=== PATIENT | female | born 2000 | race Caucasian/White ===

== ENCOUNTER 2018-08-03 13:43 | Emergency (ER) | payer SELFPAY ==
[2018-08-03 14:05] VITALS: BP 121/53
--- NOTE | 2018-08-03 14:20 | UC ---
Headache HPI - HPI Summary HPI Summary: headaches x 2 days pain is sever 8 out of 10 no radiation of the pain , took Excedrin and her salmon improved for 5 hrs but then came back no n/v , + nasal congestion ,no cough, no fever - History Of Current Complaint Chief Complaint: UCRespiratory Stated Complaint: SINUSES/MIGRAINE Time Seen by Provider: 08/03/18 14:07 Hx Obtained From: Patient Hx Last Menstrual Period: 07/21/18 ?: No Onset/Duration: Gradual Onset, Lasting Days - 2, Resolved Initially Headache Was: Severe Currently Pain Is: Mild Pain Intensity: 5 Timing: Intermittent, Lasting: - 5hr Character: Throbbing Location of Headache: Frontal Aggravating Factor(s): Nothing Allevating Factor(s): Medication Associated Signs And Symptoms: Negative: Dizziness, Seizure, Nausea, Vomiting, Sinus Pressure, Fever, Neck Pain, Decreased LOC, Visual Changes - Allergies/Home Medications Allergies/Adverse Reactions: Allergies Allergy/AdvReac Type Severity Reaction Status Date / Time No Known Allergies Allergy Verified 08/03/18 14:00 Home Medications: Home Medications Bcp 1 tab DAILY 08/03/18 [History Confirmed 08/03/18] PMH/Surg Hx/FS Hx/Imm Hx Previously Healthy: Yes - Surgical History Surgical History: None - Family History Known Family History: Negative: Diabetes - Social History Alcohol Use: None Substance Use Type: None Smoking Status (MU): Never Smoked Tobacco Review of Systems Constitutional: Negative Skin: Negative Eyes: Negative ENT: Negative Respiratory: Negative Cardiovascular: Negative Neurological: Headache Is Patient Immunocompromised?: No All Other Systems Reviewed And Are Negative: Yes Physical Exam Triage Information Reviewed: Yes Appearance: Well-Appearing, No Pain Distress, Well-Nourished Vital Signs: Initial Vital Signs Temp 98.8 F 08/03/18 14:01 Pulse 88 08/03/18 14:01 Resp 16 08/03/18 14:01 BP 121/53 08/03/18 14:01 Pulse Ox 100 08/03/18 14:01 Vital Signs Reviewed: Yes Eye Exam: Normal Eyes: Positive: Conjunctiva Clear ENT: Positive: Normal ENT inspection, Hearing grossly normal, Pharynx normal, TMs normal. Negative: Nasal congestion, Nasal drainage, TM bulging, TM dull, TM red, Tonsillar swelling, Tonsillar exudate Neck exam: Normal Neck: Positive: Supple, Nontender, No Lymphadenopathy Respiratory Exam: Normal Respiratory: Positive: Chest non-tender, Lungs clear, Normal breath sounds Cardiovascular: Positive: RRR, No Murmur, Pulses Normal Neurological Exam: Normal Skin Exam: Normal Headache Course/Dx - Differential Dx/Diagnosis Provider Diagnoses: acute headache Discharge - Sign-Out/Discharge Documenting (check all that apply): Patient Departure All imaging exams completed and their final reports reviewed: No Studies - Discharge Plan Condition: Stable Disposition: HOME Prescriptions: SUMAtriptan TAB* [Imitrex TAB*] 100 mg PO SEE INSTRUCTIONS #10 tab Patient Education Materials: Acute Headache (DC) Referrals: No Primary Care Phys,NOPCP [Primary Care Provider] - 7 Days - Billing Disposition and Condition Condition: STABLE Disposition: Home
== END 2018-08-03 14:25 | disposition home or self-care (01) ==
LOC: UCCORT 13:43
DX: R51 Headache (principal)
CPT/HCPCS: 99202; G0463